=== PATIENT | male | born 1995 | race Caucasian/White ===

== ENCOUNTER 2018-09-09 11:30 | Emergency (ER) | payer MEDICAID ==
[~2018-09-09] VITALS: Ht 175.3 cm; Wt 77.0 kg
[2018-09-09 14:31] LABS: BASOPHILS % 0.4 % (0.0-2.0); EOSINOPHILS % 0.2 % (0.0-5.0); HEMATOCRIT. 46.3 % (42.0-52.0); HEMOGLOBIN. 16.6 g/dL (14.0-18.0); MEAN CORPUSCULAR HEMOGLOBIN 29.4 pg (28.0-32.0); MEAN CORPUSCULAR VOLUME 82.4 fL (80.0-94.0); MEAN PLATELET VOLUME 9.1 fl (7.4-10.4); MONOCYTES % 6.3 % (2.0-8.0); NEUTROPHILS % 74.1 % (40.0-76.0); PLATELET 197 x1000/uL (130-400); RED BLOOD CELL COUNT 5.62 mill/uL (4.7-6.1); RED CELL DISTRIBUTION WIDTH 12.9 % (11.6-14.6)
[2018-09-09 14:37] LABS: CHLORIDE 105 mEq/L (98-107)
[2018-09-09 14:54] VITALS: BP 147/94
== END 2018-09-09 14:57 | disposition home or self-care (01) ==
LOC: ER 11:30
DX: R20.2 Paresthesia of skin (principal); R20.0 Anesthesia of skin
CPT/HCPCS: 36415; 80048; 99283

== ENCOUNTER 2022-10-01 10:36 | Emergency (ER) | payer SELFPAY ==
[~2022-10-01] VITALS: Ht 167.6 cm; Wt 88.6 kg
[2022-10-01 11:17] VITALS: O2SAT 98
[2022-10-01 13:05] VITALS: BP 125/56; PULSE 92; RESP 18; TEMP 98.3
== END 2022-10-01 13:49 | disposition home or self-care (01) ==
LOC: ER 10:36
DX: M54.50 Low back pain, unspecified (principal)
CPT/HCPCS: 99281